=== PATIENT | female | born 1980 | race Caucasian/White ===

== ENCOUNTER 2017-10-20 14:46 | Emergency (ER) | payer OTHER ==
[~2017-10-20] VITALS: Ht 160 cm; Wt 79.8 kg
[~2017-10-20 14:46] MED LIST: BACLOFEN10 MG; CLARITIN10 M1; ETODOLAC200 MG; NEURONTIN600 MG; SINGULAIR10 MG
[2017-10-20] MEDS ORDERED: SYNTHROID75 MCG (14:57)
[2017-10-20] MEDS ORDERED: NUCYNTA50 MG (14:57)
== END 2017-10-20 18:19 ==
LOC: ER 14:46
DX: S93.492A Sprain of other ligament of left ankle, initial encounter (principal); X50.3XXA Overexertion from repetitive movements, initial encounter; Y93.89 Activity, other specified; Y92.69 Other specified industrial and construction area as the place of occurrence of the external cause; Y99.8 Other external cause status